=== PATIENT | female | born 1965 | race Two or more races ===

== ENCOUNTER 2020-08-10 07:37 | Inpatient (IN) | payer MEDICAID, OTHER ==
[~2020-08-10] VITALS: Ht 165.1 cm; Wt 99.8 kg
[2020-08-10] MEDS ORDERED: LORAZEPAM 2MG/ML CPJ IV ONE ×5 (08:00→13:15)
[2020-08-10] MEDS ORDERED: LEVETIRACETAM 500MG PREMIX 100 ML IV ONE (08:45)
[2020-08-10] MEDS ORDERED: HYDRALAZINE 20MG/ML VIAL IV ONE (08:45)
[2020-08-10 09:07] LABS: EOSINOPHILS % 3.7 % (0.0-5.0); HEMATOCRIT. 41.2 % (36.0-48.0); LYMPHOCYTES % 37.5 % (20.0-50.0); MEAN CORPUSCULAR HEMOGLOBIN 26.4 pg (28.0-32.0); MEAN CORPUSCULAR VOLUME 83.8 fL (81.0-99.0); MONOCYTES % 7.2 % (2.0-8.0); NEUTROPHILS % 50.6 % (40.0-76.0); PLATELET 319 x1000/uL (130-400); RED BLOOD CELL COUNT 4.91 mill/uL (4.2-5.4); RED CELL DISTRIBUTION WIDTH 15.2 % (11.6-14.6)
[2020-08-10 09:15] LABS: CHLORIDE 103 mEq/L (98-107)
[2020-08-10 09:16] LABS: INR 0.8; PARTIAL THROMBOPLASTIN TIME 23.7 sec (23.4-31.0)
[2020-08-10 09:21] LABS: ETHANOL BLOOD < 10 mg/dL
[2020-08-10 09:23] LABS: BETA HYDROXYBUTYRATE 0.1 mMol/L (0.0-0.3)
[2020-08-10 09:52] LABS: CARBAMAZEPINE < 0.5 ug/mL (4-12)
[2020-08-10 09:53] LABS: PHENOBARBITAL < 2.1 ug/mL (15.0-40.0); VALPROIC ACID < 3.0 ug/mL (50-100)
[2020-08-10 10:11] LABS: CLARITY URINE CLEAR (CLEAR); COLOR URINE YELLOW (YELLOW); KETONES URINE NEGATIVE (NEGATIVE); LEUKOCYTE ESTERASE URINE NEGATIVE (NEGATIVE); NITRITE URINE NEGATIVE (NEGATIVE); OCCULT BLOOD URINE 1+ (NEGATIVE); PH URINE 6.5 (4.5-8.0); PROTEIN URINE 3+ (NEGATIVE); SPECIFIC GRAVITY URINE 1.026 (1.005-1.030); UROBILINOGEN URINE 0.2 E.U./dL (0.2-1.0)
[2020-08-10 10:22] LABS: *AMPHETAMINES SCREEN URINE NEGATIVE (NEGATIVE); *BARBITURATES SCREEN URINE NEGATIVE (NEGATIVE); *BENZODIAZEPINES SCREEN URINE NEGATIVE (NEGATIVE); *COCAINE SCREEN URINE NEGATIVE (NEGATIVE)
[2020-08-10 10:23] LABS: CANNABINOID URINE SCREEN NEGATIVE (NEGATIVE); OPIATES URINE SCREEN NEGATIVE (NEGATIVE); PHENCYCLIDINE URINE SCREEN NEGATIVE (NEGATIVE)
[2020-08-10 10:24] LABS: METHADONE URINE SCREEN NEGATIVE (NEGATIVE)
[2020-08-10] MEDS ORDERED: CLONIDINE HCL 0.1MG/24HR PATCH TD ONE (11:45)
[2020-08-10] MEDS ORDERED: DEXAMETHASONE 10 MG/ML VIAL IV ONE (11:45)
[2020-08-10] MEDS ORDERED: VANCOMYCIN 1 G PREMIX 200 ML IV ONE (11:45)
[2020-08-10] MEDS ORDERED: PIPERACILLIN/TAZ 3.375G PREMIX 50 ML IV ONE (11:45)
[2020-08-10] MEDS ORDERED: NICARDIPINE 40MG/200ML PREMIX 200 ML IV STA (13:15)
[2020-08-10] MEDS ORDERED: INSULIN REGULAR (HUMULIN R) UD 100 UNITS/ML SYR SUBCUT ONE (13:45)
[2020-08-10] MEDS ORDERED: INSULIN REGULAR (HUMULIN R) 300UNITS/3ML VIAL SUBCUT NR (14:30)
[2020-08-10] MEDS ORDERED: MORPHINE SULFATE 2 MG/ML CPJ (NOT FOR IM USE) IV PRN (14:45)
[2020-08-10] MEDS ORDERED: DEXTROSE 50% WATER 50ML SYRINGE IV PRN (14:45)
[2020-08-10] MEDS ORDERED: IPRATROPIUM/ALBUTEROL 0.5-3(2.5)MG/3ML NEB NEB PRN (14:45)
[2020-08-10] MEDS ORDERED: MAGNESIUM/ALUMINUM HYDROXIDE/SIMETHICONE 30ML UDC PO PRN (14:45)
[2020-08-10] MEDS ORDERED: PIPERACILLIN/TAZ 3.375G PREMIX 50 ML IV SCH (14:45)
[2020-08-10] MEDS ORDERED: GUAIFENESIN 200MG/10ML SUGAR FREE UDC PO PRN (14:45)
[2020-08-10] MEDS ORDERED: NA PHOS,M-B/NA PHOS,DI-BA ENEMA 118ML PR PRN (14:45)
[2020-08-10] MEDS ORDERED: DIPHENHYDRAMINE 50MG/ML VIAL IV PRN (14:45)
[2020-08-10] MEDS ORDERED: HYDRALAZINE 20MG/ML VIAL IV PRN (14:45)
[2020-08-10] MEDS ORDERED: ONDANSETRON HCL 4MG/2ML INJ IV PRN (14:45)
[2020-08-10] MEDS ORDERED: DOCUSATE SODIUM 100MG CAPSULE PO PRN (14:45)
[2020-08-10] MEDS ORDERED: HYDROCODONE/ACETAMINOPHEN 5/325MG TABLET PO PRN (14:45)
[2020-08-10 15:59] LABS: BG BASE EXCESS -0.5 mmol/L (-2.0-2.0); BG CARBOXYHEMOGLOBIN 0.2 % (0.5-1.5); BG DEOXYHEMOGLOBIN 1.1 % (0.0-5.0); BG HCO3 ACT 26.6 mmol/L (22.0-26.0); BG METHEMOGLOBIN 0.2 % (0.0-1.5); BG OXYGEN SATURATION 98.9 % (92.0-98.5); BG OXYHEMOGLOBIN 98.5 % (94.0-97.0); BG PO2 167.9 mmHg (75.0-100.0); BG SAMPLE SITE RIGHT RADIAL; BG TOTAL HEMOGLOBIN 13.6 g/dL (12.0-18.0); BG VENT MODE MASK - NRB
[2020-08-10] MEDS ORDERED: ENOXAPARIN 40MG/0.4ML SYR SUBCUT SCH (17:00)
[2020-08-10] MEDS: BLOOD SUGAR DIAGNOSTIC STRIP TEST SCH (17:48)
[2020-08-10] MEDS: PIPERACILLIN/TAZ 3.375G PREMIX 50 ML IV SCH (19:02)
[2020-08-10] MEDS: LEVETIRACETAM 500MG PREMIX 100 ML IV SCH (21:00)
[2020-08-10] MEDS ORDERED: VANCOMYCIN 1 G PREMIX 200 ML IV SCH (21:00)
[2020-08-10] MEDS: SODIUM CHLORIDE 0.9% INJ 3ML FLUSH IVF SCH (22:00)
[2020-08-11 01:33] LABS: CREATINE KINASE MB FRACTION 3.1 ng/mL (0.5-3.6)
[2020-08-11] MEDS ORDERED: NICARDIPINE 40MG/200ML PREMIX 200 ML IV PRN (04:45)
[2020-08-11] MEDS: PIPERACILLIN/TAZ 3.375G PREMIX 50 ML IV SCH ×4 (06:00→18:42)
[2020-08-11] MEDS: SODIUM CHLORIDE 0.9% INJ 3ML FLUSH IVF SCH ×3 (06:00→21:34)
[2020-08-11 06:46] LABS: HEMATOCRIT. 40.7 % (36.0-48.0); HEMOGLOBIN. 12.8 g/dL (12.0-16.0); MEAN CORPUSCULAR HEMOGLOBIN 25.9 pg (28.0-32.0); MEAN CORPUSCULAR VOLUME 82.3 fL (81.0-99.0); MEAN PLATELET VOLUME 8.7 fl (7.4-10.4); PLATELET 272 x1000/uL (130-400); RED BLOOD CELL COUNT 4.94 mill/uL (4.2-5.4); RED CELL DISTRIBUTION WIDTH 15.4 % (11.6-14.6)
[2020-08-11 07:06] LABS: CHLORIDE 109 mEq/L (98-107)
[2020-08-11 07:19] LABS: CREATINE KINASE 800 IU/L (26-192)
[2020-08-11 07:21] LABS: CREATINE KINASE MB FRACTION 5.4 ng/mL (0.5-3.6)
[2020-08-11] MEDS: INSULIN LISPRO 100 UNITS/ML SUBCUT SCH ×5 (07:43→21:34)
[2020-08-11] MEDS: BLOOD SUGAR DIAGNOSTIC STRIP TEST SCH ×5 (07:44→21:20)
[2020-08-11] MEDS: LORAZEPAM 2MG/ML CPJ IV PRN ×2 (08:06→14:18)
[2020-08-11 11:26] LABS: BG BASE EXCESS -1.6 mmol/L (-2.0-2.0); BG CARBOXYHEMOGLOBIN 0.6 % (0.5-1.5); BG FRACTION INSPIRED OXYGEN 40; BG HCO3 ACT 23.8 mmol/L (22.0-26.0); BG METHEMOGLOBIN 0.1 % (0.0-1.5); BG OXYHEMOGLOBIN 95.3 % (94.0-97.0); BG PCO2 42.5 mmHg (35.0-45.0); BG PH 7.366 (7.350-7.450); BG PO2 79.4 mmHg (75.0-100.0); BG SAMPLE SITE LEFT RADIAL; BG TOTAL HEMOGLOBIN 13.4 g/dL (12.0-18.0); BG VENT MODE NASAL CANNULA
[2020-08-11] MEDS: ASPIRIN 81MG TABLET PO SCH (12:11)
[2020-08-11] MEDS: ENOXAPARIN 30MG/0.3ML SYR SUBCUT SCH ×2 (12:11→21:34)
[2020-08-11] MEDS: LEVETIRACETAM 500MG PREMIX 100 ML IV SCH ×2 (12:11→21:34)
[2020-08-11] MEDS: CLOPIDOGREL 75MG TABLET PO SCH ×2 (12:12→16:15)
[2020-08-11 13:16] LABS: PLATELET ESTIMATE NORMAL
[2020-08-11 13:45] LABS: T4 FREE 1.22 ng/dL (0.76-1.46)
[2020-08-11] MEDS: VANCOMYCIN 1250MG in DEXTROSE 5% WATER 250ML IV SCH ×2 (14:00→22:42)
[2020-08-11] MEDS: HYDRALAZINE HCL 50MG TABLET PO SCH ×2 (14:15→22:42)
[2020-08-11] MEDS: INSULIN GLARGINE UD 100 UNITS/ML SYR SUBCUT SCH ×2 (16:45→22:42)
[2020-08-11 18:22] LABS: BG CARBOXYHEMOGLOBIN 0.1 % (0.5-1.5); BG DEOXYHEMOGLOBIN 2.9 % (0.0-5.0); BG HCO3 ACT 17.9 mmol/L (22.0-26.0); BG METHEMOGLOBIN 0.3 % (0.0-1.5); BG OXYGEN SATURATION 97.1 % (92.0-98.5); BG OXYHEMOGLOBIN 96.7 % (94.0-97.0); BG PCO2 34.4 mmHg (35.0-45.0); BG PH 7.335 (7.350-7.450); BG PO2 101.7 mmHg (75.0-100.0); BG SAMPLE SITE RIGHT RADIAL; BG VENT MODE ROOM AIR
[2020-08-11] MEDS: CLONIDINE 0.1MG TABLET PO PRN (19:24)
[2020-08-11] MEDS: METOPROLOL TARTRATE 50MG TABLET PO SCH (21:34)
[2020-08-12 00:42] LABS: CREATINE KINASE MB FRACTION 5.8 ng/mL (0.5-3.6)
[2020-08-12] MEDS: PIPERACILLIN/TAZ 3.375G PREMIX 50 ML IV SCH ×4 (01:36→18:29)
[2020-08-12] MEDS: CLONIDINE 0.1MG TABLET PO PRN (03:06)
[2020-08-12] MEDS: SODIUM CHLORIDE 0.9% INJ 3ML FLUSH IVF SCH ×3 (07:23→22:51)
[2020-08-12] MEDS: BLOOD SUGAR DIAGNOSTIC STRIP TEST SCH ×4 (07:23→22:50)
[2020-08-12] MEDS: VANCOMYCIN 1250MG in DEXTROSE 5% WATER 250ML IV SCH (07:23)
[2020-08-12 09:07] LABS: CREATINE KINASE MB FRACTION 6.5 ng/mL (0.5-3.6)
[2020-08-12] MEDS: HYDRALAZINE HCL 50MG TABLET PO SCH ×3 (10:45→22:51)
[2020-08-12] MEDS: INSULIN LISPRO 100 UNITS/ML SUBCUT SCH ×4 (11:37→22:51)
[2020-08-12] MEDS: CLOPIDOGREL 75MG TABLET PO SCH (11:44)
[2020-08-12] MEDS: ENOXAPARIN 30MG/0.3ML SYR SUBCUT SCH (11:44)
[2020-08-12] MEDS: ASPIRIN 81MG TABLET PO SCH (11:44)
[2020-08-12] MEDS: INSULIN GLARGINE UD 100 UNITS/ML SYR SUBCUT SCH ×2 (12:37→23:00)
[2020-08-12] MEDS: METOPROLOL TARTRATE 50MG TABLET PO SCH ×2 (12:37→22:51)
[2020-08-12] MEDS: LEVETIRACETAM 500MG PREMIX 100 ML IV SCH ×2 (13:15→23:00)
[2020-08-12] MEDS: SODIUM CHLORIDE 0.9% 1,000 ML IV SCH (18:06)
[2020-08-12] MEDS ORDERED: VANCOMYCIN 1 G PREMIX 200 ML IV SCH (20:00)
[2020-08-13 00:05] LABS: T4 FREE 1.24 ng/dL (0.76-1.46)
[2020-08-13] MEDS: PIPERACILLIN/TAZ 3.375G PREMIX 50 ML IV SCH ×3 (00:48→14:23)
[2020-08-13] MEDS: ENOXAPARIN 30MG/0.3ML SYR SUBCUT SCH ×3 (03:05→22:19)
[2020-08-13] MEDS: SODIUM CHLORIDE 0.9% 1,000 ML IV SCH ×2 (03:06→16:07)
[2020-08-13] MEDS: SODIUM CHLORIDE 0.9% INJ 3ML FLUSH IVF SCH ×3 (06:20→22:19)
[2020-08-13] MEDS: HYDRALAZINE HCL 50MG TABLET PO SCH ×2 (06:52→15:33)
[2020-08-13] MEDS: BLOOD SUGAR DIAGNOSTIC STRIP TEST SCH ×4 (06:52→21:34)
[2020-08-13] MEDS: INSULIN LISPRO 100 UNITS/ML SUBCUT SCH ×4 (06:52→22:18)
[2020-08-13 09:10] LABS: BASOPHILS % 0.7 % (0.0-2.0); EOSINOPHILS % 2.8 % (0.0-5.0); HEMATOCRIT. 35.9 % (36.0-48.0); HEMOGLOBIN. 11.8 g/dL (12.0-16.0); LYMPHOCYTES % 13.3 % (20.0-50.0); MEAN CORPUSCULAR HEMOGLOBIN 26.5 pg (28.0-32.0); MEAN CORPUSCULAR VOLUME 80.6 fL (81.0-99.0); MEAN PLATELET VOLUME 8.4 fl (7.4-10.4); MONOCYTES % 8.8 % (2.0-8.0); NEUTROPHILS % 74.4 % (40.0-76.0); PLATELET 269 x1000/uL (130-400); RED BLOOD CELL COUNT 4.46 mill/uL (4.2-5.4); RED CELL DISTRIBUTION WIDTH 15.4 % (11.6-14.6)
[2020-08-13] MEDS ORDERED: VANCOMYCIN 1500MG in DEXTROSE 5% WATER 250ML IV SCH (11:00)
[2020-08-13] MEDS: LEVETIRACETAM 500MG PREMIX 100 ML IV SCH ×2 (11:45→22:17)
[2020-08-13] MEDS: METOPROLOL TARTRATE 50MG TABLET PO SCH ×2 (12:25→22:17)
[2020-08-13] MEDS: ASPIRIN 81MG TABLET PO SCH (12:25)
[2020-08-13] MEDS: CLOPIDOGREL 75MG TABLET PO SCH (12:26)
[2020-08-13] MEDS: INSULIN GLARGINE UD 100 UNITS/ML SYR SUBCUT SCH ×2 (12:27→23:27)
[2020-08-13] MEDS: PIPERACILLIN/TAZOBACTAM 2.25 G in DEXTROSE 5% WATER 50 ML IV SCH (18:11)
[2020-08-14] MEDS: PIPERACILLIN/TAZOBACTAM 2.25 G in DEXTROSE 5% WATER 50 ML IV SCH (04:29)
[2020-08-14] MEDS: SODIUM CHLORIDE 0.9% 1,000 ML IV SCH ×2 (05:29→17:37)
[2020-08-14] MEDS: SODIUM CHLORIDE 0.9% INJ 3ML FLUSH IVF SCH ×2 (05:30→15:18)
[2020-08-14] MEDS: BLOOD SUGAR DIAGNOSTIC STRIP TEST SCH ×4 (06:14→21:00)
[2020-08-14] MEDS: INSULIN LISPRO 100 UNITS/ML SUBCUT SCH ×4 (06:15→23:57)
[2020-08-14] MEDS: HYDRALAZINE HCL 50MG TABLET PO SCH ×4 (06:16→23:54)
[2020-08-14] MEDS: METOPROLOL TARTRATE 50MG TABLET PO SCH ×2 (09:00→23:54)
[2020-08-14 09:11] LABS: BASOPHILS % 2.7 % (0.0-2.0); EOSINOPHILS % 3.1 % (0.0-5.0); HEMATOCRIT. 38.3 % (36.0-48.0); HEMOGLOBIN. 12.3 g/dL (12.0-16.0); LYMPHOCYTES % 24.5 % (20.0-50.0); MEAN PLATELET VOLUME 8.1 fl (7.4-10.4); MONOCYTES % 7.7 % (2.0-8.0); PLATELET 319 x1000/uL (130-400); RED BLOOD CELL COUNT 4.73 mill/uL (4.2-5.4); RED CELL DISTRIBUTION WIDTH 15.4 % (11.6-14.6)
[2020-08-14] MEDS: ASPIRIN 81MG TABLET PO SCH (09:48)
[2020-08-14] MEDS: CLOPIDOGREL 75MG TABLET PO SCH (09:48)
[2020-08-14] MEDS: LEVETIRACETAM 500MG PREMIX 100 ML IV SCH (09:48)
[2020-08-14] MEDS: ENOXAPARIN 30MG/0.3ML SYR SUBCUT SCH ×2 (09:49→23:55)
[2020-08-14] MEDS: INSULIN GLARGINE UD 100 UNITS/ML SYR SUBCUT SCH ×2 (10:00→23:58)
[2020-08-14 16:00] VITALS: BP 140/69
[2020-08-14] MEDS: ACETAMINOPHEN 325MG TABLET PO PRN (17:33)
[2020-08-14] MEDS ORDERED: ASPI-1497 PO (17:54)
[2020-08-14] MEDS ORDERED: METF-816 MT (17:54)
[2020-08-14] MEDS ORDERED: ATOR20TA65 PO (17:54)
[2020-08-14 20:00] VITALS: BP 135/55
[2020-08-14] MEDS ORDERED: LEVETIRACETAM 500MG PREMIX 100 ML IV SCH (21:00)
[2020-08-14] MEDS: LEVETIRACETAM 500MG TABLET PO SCH (23:54)
[2020-08-15 00:05] VITALS: BP 139/70
[2020-08-15 04:00] VITALS: BP 129/66
[2020-08-15] MEDS: ACETAMINOPHEN 325MG TABLET PO PRN (06:45)
[2020-08-15] MEDS: SODIUM CHLORIDE 0.9% INJ 3ML FLUSH IVF SCH ×2 (06:47)
[2020-08-15] MEDS: BLOOD SUGAR DIAGNOSTIC STRIP TEST SCH ×2 (06:47→12:08)
[2020-08-15] MEDS: HYDRALAZINE HCL 50MG TABLET PO SCH (06:47)
[2020-08-15] MEDS: SODIUM CHLORIDE 0.9% 1,000 ML IV SCH (07:40)
[2020-08-15 08:00] VITALS: BP 128/67
[2020-08-15] MEDS: INSULIN LISPRO 100 UNITS/ML SUBCUT SCH ×2 (08:45→12:08)
[2020-08-15] MEDS: ENOXAPARIN 30MG/0.3ML SYR SUBCUT SCH (08:46)
[2020-08-15] MEDS: METOPROLOL TARTRATE 50MG TABLET PO SCH (08:46)
[2020-08-15] MEDS: ASPIRIN 81MG TABLET PO SCH (08:46)
[2020-08-15] MEDS: LEVETIRACETAM 500MG TABLET PO SCH (08:46)
[2020-08-15] MEDS: CLOPIDOGREL 75MG TABLET PO SCH (08:46)
[2020-08-15] MEDS: INSULIN GLARGINE UD 100 UNITS/ML SYR SUBCUT SCH (10:25)
[2020-08-15 12:09] VITALS: BP 128/67
== END 2020-08-15 12:47 | disposition home or self-care (01) | DRG 871 ==
LOC: ER 07:56 → MICUSO 13:17 → 7EST 08-14 14:14
PROVIDERS: ADMIT Internal Medicine; ATTEND Internal Medicine
DX: A41.81 Sepsis due to Enterococcus (principal); U07.1 COVID-19; J96.01 Acute respiratory failure with hypoxia; I21.4 Non-ST elevation (NSTEMI) myocardial infarction; G92 Toxic encephalopathy; E66.2 Morbid (severe) obesity with alveolar hypoventilation; N39.0 Urinary tract infection, site not specified; E11.65 Type 2 diabetes mellitus with hyperglycemia; I10 Essential (primary) hypertension; R56.9 Unspecified convulsions; E87.6 Hypokalemia; E78.00 Pure hypercholesterolemia, unspecified; Z86.73 Personal history of transient ischemic attack (TIA), and cerebral infarction without residual deficits; Z79.899 Other long term (current) drug therapy; Z86.19 Personal history of other infectious and parasitic diseases; Z68.36 Body mass index [BMI] 36.0-36.9, adult
CPT/HCPCS: 36415; 36600; 71045; 80048; 80053; 80061; 80156; 80165; 80184; 80185; 80202; 80305; 80320; 81003; 82010; 82140; 82375; 82550; 82553; 82607; 82746; 82805; 82962; 83036; 83605; 83880; 84145; 84439; 84443; 84481; 84484; 85025; 85379; 87077; 87186; 87635; 93005; 93970; J0360; J1100; J1650; J1815; J1953; J2060; J2543; J3370; J7030; J7060; G0480